=== PATIENT | female | born 2000 | race Two or more races ===

== ENCOUNTER 2024-10-04 00:43 | Emergency (ER) | payer OTHER ==
[~2024-10-04] VITALS: Ht 149.9 cm; Wt 95.9 kg
[2024-10-04 00:48] VITALS: BP 115/68; PULSE 71; RESP 16; TEMP 98.6; O2SAT 98
[2024-10-04 01:21] LABS: PLATELET COUNT (AUTO) 328 K/uL (150-450); RED BLOOD CELL COUNT(AUTO) 4.57 MIL/uL (4.00-5.20); RED CELL DISTRIBUTION WIDTH 13.3 % (11.5-14.5); WHITE BLOOD COUNT (AUTO) 7.3 K/uL (4.5-11.0)
[2024-10-04 01:32] LABS: CALCIUM, TOTAL 8.5 mg/dL (8.8-10.5); CREATININE 0.78 mg/dL (0.60-1.30); GLOMERULAR FILTR. RATE CALC > 60 mL/min (>60); GLUCOSE,RANDOM 82 mg/dL (70-110); SODIUM SERUM 141 mmol/L (136-145); UREA NITROGEN, BLOOD 16 mg/dL (7-18)
== END 2024-10-04 03:30 | disposition left against medical advice (07) ==
LOC: EMS 00:47
DX: R10.9 Unspecified abdominal pain (principal); Z53.21 Procedure and treatment not carried out due to patient leaving prior to being seen by health care provider
CPT/HCPCS: 80048; 84702; 85025